=== PATIENT | male | born 1930 | race Caucasian/White ===

== ENCOUNTER 2017-03-27 08:31 | Day surgery (SDC) | payer MEDICARE, OTHER ==
[~2017-03-27] VITALS: Ht 182.9 cm; Wt 89.6 kg
[~2017-03-27 08:31] MED LIST: ASCO500S2 PO; ASPI81TA3 PO; CHOL100043 PO; GLUC-123 PO; HYDR25TA4 PO; KRIL1CAP19 PO; LISI-567 PO; METF500T4 PO; NEBI10TA2 PO; TEST5GEL18 TD; UBID100C25 PO; VIT1TAB.9 PO
[2017-03-27 09:15] VITALS: BP 129/77; PULSE 43; RESP 15; O2SAT 98
[2017-03-27 10:20] VITALS: BP 121/69; PULSE 47; RESP 16; O2SAT 97
[2017-03-27 10:25] VITALS: BP 124/73; PULSE 62; RESP 16; O2SAT 99
[2017-03-27 10:30] VITALS: BP 117/77; PULSE 64; RESP 16; O2SAT 98
--- NOTE | 2017-03-27 10:52 | NUR ---
Phlebotomy Patient arrived from Dr. Valdez's office. Labs drawn at MD office, indicate draw. Attempted IV twice and IVT notified. Second attempt per IVT, for successful draw of 450ml. Given water. Denies any reportable symptoms. Left unit independently.
== END 2017-03-27 23:59 | disposition home or self-care (01) ==
LOC: MOCO 08:31
PROVIDERS: ATTEND Internal Medicine Hematology & Oncology
DX: D75.1 Secondary polycythemia (principal)